=== PATIENT | male | born 1955 | race Two or more races ===

== ENCOUNTER 2021-08-24 17:51 | Emergency (ER) | payer OTHER ==
[~2021-08-24] VITALS: Ht 167.6 cm; Wt 88.5 kg
[2021-08-24] MEDS ORDERED: MORPHINE SULFATE 4 MG/ML SYR/VIAL IV ONE (19:00)
[2021-08-24] MEDS ORDERED: ONDANSETRON HCL 4 MG/2 ML VIAL IV ONE (19:00)
[2021-08-24] MEDS ORDERED: SODIUM CHLORIDE 0.9% 500 ML IVB ONE (19:00)
[2021-08-24 20:22] LABS: Basophils # (auto) 0 10 ^3/uL (0-0.2); Basophils % (auto) 0.6 % (0.0-2.0); Eosinophils # (auto) 0.3 10 ^3/uL (0-0.8); Eosinophils % (auto) 3.8 % (0.0-7.0); Hematocrit 41.1 % (41.0-53.0); Hemoglobin 13.8 g/dL (13.5-17.5); Lymphocytes # (auto) 1.1 10 ^3/uL (0.4-5.4); Lymphocytes % (auto) 13.5 % (10.0-50.0); Mean Corpuscular Hemoglobin 28.9 pg (28.0-32.0); Mean Corpuscular Hgb Conc. 33.5 g/dL (32.0-36.0); Mean Corpuscular Volume 86.1 fL (80.0-100.0); Monocytes # (auto) 0.8 10 ^3/uL (0-1.3); Monocytes % (auto) 9.7 % (0.0-12.0); Neutrophils # (auto) 5.7 10 ^3/uL (1.6-8.6); Neutrophils % (auto) 72.4 % (37.0-80.0); Red Blood Cells 4.77 10^6/uL (4.5-5.90); Red Cell Distribution Width 13.5 % (11.8-14.3); White Blood Cell 7.8 10^3/uL (4.4-10.8)
[2021-08-24 20:39] LABS: Albumin 3.6 g/dL (3.4-5.0); BUN/Creatinine Ratio 18.9; Calcium 9.1 mg/dL (8.5-10.1); Potassium 3.8 mmol/L (3.5-5.1)
[2021-08-24 20:42] LABS: Bilirubin, Total 0.2 mg/dL (0.2-1.0); Total Protein 7.1 g/dL (6.4-8.2)
[2021-08-24 22:52] LABS: Urine Bacteria NONE SEEN /hpf (None Seen); Urine Blood Negative /uL (Negative); Urine Mucus FEW (None Seen); Urine Specific Gravity 1.026 (1.001-1.035); Urine WBC 1 /hpf (0 - 3)
[2021-08-24] MEDS ORDERED: HYDR-4902 PO (23:09)
[2021-08-24 23:27] VITALS: BP 158/93
== END 2021-08-24 23:44 | disposition home or self-care (01) ==
LOC: ER 17:51
DX: R10.9 Unspecified abdominal pain (principal); I10 Essential (primary) hypertension; E11.9 Type 2 diabetes mellitus without complications; E78.5 Hyperlipidemia, unspecified; Z79.899 Other long term (current) drug therapy
CPT/HCPCS: 36415; 74176; 80053; 81001; 82150; 83690; 85025